=== PATIENT | female | born 1950 | race Caucasian/White ===

== ENCOUNTER 2024-01-19 08:40 | Emergency (ER) | payer MEDICARE, SELFPAY ==
[2024-01-19 08:46] VITALS: BP 210/165; PULSE 106; TEMP 36.4; O2SAT 100; BMI 28.3
[2024-01-19] MEDS: CEFAZOLIN SODIUM/DEXTROSE,ISO 1 GM/50 ML IV.SOLN IV (10:00)
[2024-01-19] MEDS: BACITRACIN OINTMENT 28.4 GM TUBE 1 APPLIC TOPICAL (11:46)
[2024-01-19] MEDS: LIDOCAINE HCL 1% 100 MG/10 ML MDV 30 ML INJ (11:46)
[2024-01-19] MEDS: LIDOCAINE HCL 1% 100 MG/10 ML MDV INJ (11:46)
[2024-01-19] MEDS: SODIUM CHLORIDE 0.9% IRRIG SOLUTION 1,000 ML BOTTLE 1000 ML IRR ×2 (11:47)
--- NOTE | 2024-01-19 11:55 | ED_ITS ---
HPI HPI - General Adult General Chief complaint: Animal Bite Stated complaint: ANIMAL BITE Time Seen by Provider: 01/19/24 08:57 Source: patient Mode of arrival: walk-in Limitations: no limitations History of Present Illness HPI narrative: Patient is a 73-year-old female who is presenting to the ER after she was bitten the face by a dog. This was patient's son's dog that she was watching. Dog report has been filled out. Patient does not know when the last tetanus shot that she had was. Dog was underneath the bed, patient was trying to get the dog from out underneath the bed, the dog,, biting her in the face. Patient has multiple lacerations around her mouth, upper lip, chin, and extensive lacerations inside her lower lip that are through and through lacerations. Patient is not diabetic. Patient was offered transfer to plastic surgery secondary to the extensive lacerations around her mouth and inside her mouth. Patient states that she normally goes to [facility]. Patient was concerned about the bleeding not stopping, so she came to [facility]. Patient does not want to be transferred to another facility that has plastic surgery, patient would like me to repair all of her lacerations. Patient has no other lacerations besides her face. All systems are negative except as noted/marked. All systems reviewed and otherwise negative. Nurses note and vital signs reviewed and patient is not hypoxic. General: The patient appears mild to moderate distress secondary to anxiety and mild pain from the extensive lacerations to her face. Patient is resting uncomfortably on cart. Patient is not toxic, lethargic, or listless. Skin: Warm, dry, no pallor noted. There is no rash noted. No petechiae, purpura. See procedure note for the descriptions of all lacerations that were seen. Head: Normocephalic, dog bite around her mouth and intraoral, please see procedure note for all the descriptions and procedure notes for the multiple lacerations that occurred. Eye: Normal conjunctiva, no drainage, EOMI. PERRL. No eye injury. Ears, Nose, Mouth, and Throat: oral mucosa is moist. Nares patent. Mouth without vesicles. Cardiovascular: Regular Rate and Rhythm, no murmur, gallop, rub Respiratory: Patient is in no distress, no accessory muscle use, lungs are clear to auscultation, no wheezing, rales or rhonchi Back: non-tender, Musculoskeletal: Patient has full range of motion of all of the extremities, no motor, sensory, or focal neurological deficits Neurological: A&O x4, normal speech Psychiatric: Cooperative Related Data Home Medications ?Medication ?Instructions ?Recorded ?Confirmed lisinopril 5 mg tablet 5 mg PO BID 01/19/24 01/19/24 metformin 500 mg tablet 500 mg PO BID 01/19/24 01/19/24 omeprazole 40 mg capsule,delayed 40 mg PO DAILY 01/19/24 01/19/24 release Previous Rx's ?Medication ?Instructions ?Recorded amoxicillin 875 mg-potassium 1 tab PO Q12H 10 days #20 tabs 01/19/24 clavulanate 125 mg tablet hydrocodone 5 mg-acetaminophen 325 1 tab PO Q4H PRN pain #12 tabs 01/19/24 mg tablet mupirocin 2 % topical ointment 1 applic topical TID 14 days #15 01/19/24 grams Allergies Allergy/AdvReac Type Severity Reaction Status Date / Time egg AdvReac Mild Verified 01/19/24 08:46 Opioid HPI Opioid Management Most Recent Opioid Data: Last Pain Scale 6 01/19/24 12:25 Last MAR Pain Assessment 01/19/24 12:03 Exam Constitutional Vital Signs, click to edit/add: Last Vital Signs Temp 97.5 F L 01/19/24 08:46 Pulse 106 H 01/19/24 08:46 Resp 18 01/19/24 08:46 BP 210/165 H 01/19/24 08:46 Pulse Ox 100 01/19/24 08:46 O2 Del Method Room Air 01/19/24 08:46 Course Vital Signs Vital signs: Vital Signs Temperature 97.5 F L 01/19/24 08:46 Pulse Rate 106 H 01/19/24 08:46 Respiratory Rate 18 01/19/24 08:46 Blood Pressure 210/165 H 01/19/24 08:46 Pulse Oximetry 100 01/19/24 08:46 Oxygen Delivery Method Room Air 01/19/24 08:46 Temperature 97.5 F L 01/19/24 08:46 Pulse Rate 106 H 01/19/24 08:46 Respiratory Rate 18 01/19/24 08:46 Blood Pressure 210/165 H 01/19/24 08:46 Pulse Oximetry 100 01/19/24 08:46 Oxygen Delivery Method Room Air 01/19/24 08:46 Discharge Plan Discharge Stand Alone Forms: Portal Instructions Chief Complaint: Animal Bite Clinical Impression: Intraoral laceration, Bite by animal, Dog bite, Laceration of intraoral surface of lip, Laceration of face, multiple sites, Laceration of face, complex Patient Disposition: Home, Self-Care Time of Disposition Decision: 11:48 Condition: Fair Prescriptions / Home Meds: New hydrocodone-acetaminophen 5-325 mg tablet 1 tab PO Q4H PRN (Reason: pain) Qty: 12 0RF mupirocin 2 % ointment 1 applic topical TID 14 Days Qty: 15 0RF amoxicillin-pot clavulanate 875-125 mg tablet 1 tab PO Q12H 10 Days Qty: 20 0RF No Action lisinopril 5 mg tablet 5 mg PO BID metformin 500 mg tablet 500 mg PO BID omeprazole 40 mg capsule,delayed release(DR/EC) 40 mg PO DAILY Print Language: Kiswahili Instructions: Animal Bite (ED), Laceration (ED), Care For Your Absorbable Stitches (ED), Laceration Without Closure (ED), Facial Laceration (ED), Bone Bruise (ED) Additional Instructions: Use prescribed antibiotic ointment 3 times a day to help prevent infection and p romote wound healing. Tonight you may take a shower, let the water fall off your face, did not have your head submerged under any body of water for the next 3 weeks. Facial sutures should be removed in 5 to 7 days. Use ice 20 minutes on, 20 minutes off. Do not use heat. The multiple sutures placed inside your mouth will dissolve in several weeks. Soft diet for the next 4 to 5 days, nothing that you have to chew or where any significant particles could get inside any wounds. You may use Motrin, Advil, or ibuprofen in addition to pain medication to help with pain. Do not take Tylenol and [place] together, you could accidentally take too much Tylenol at 1 time. Either use Tylenol or White [place], do not exceed 3000 mg of Tylenol daily Referrals: MELANIE WILKERSON [Primary Care Provider] - 1 week Discharge Date/Time: 01/19/24 12:37 Procedures ED Procedure Instructions Procedures Procedures: Multiple laceration procedure notes, see below. Aniceto RUIZ was at bedside during the entire procedure note as an zoning assistant, very helpful. The first laceration that was repaired was patient's large intraoral laceration, to her lower lip, 3 separate lower lip lacerations and 1 large laceration through the lower gingival/gum tissue. Laceration repair done by Dr. Castrejon. Aniceto RUIZ was at bedside for assistance which was helpful and to help with repair of holding lip and soft tissue at various parts of the procedure. Patient was cleaned, prepped, draped in normal sterile fashion. The patient was anesthetized with a total of 20cc of 1 percent lidocaine]. Multiple different injections were done just prior to me doing the different sections of repairs. Patient had good anesthetic effect to all areas. Patient was cleaned with Hibiclens (intraoral) and Betadine to all other wounds. patient was copiously irrigated with sterile irrigation water, approximately a total of 3000 mL. Patient never had any type of airway compromise. Patient tolerated all procedures well with no difficulty. Patient had 15 cc of Hibiclens that was used to irrigate the large intraoral laceration, then patient had 1000 mL irrigation bottle poured to her lower lip. The irrigation water came out of the 2 large lower left and right chin lacerations, both of these were a through and through laceration. 10 minutes was spent irrigating all wounds with Hibiclens, Betadine, and a total of 3000 mL of irrigation water. Patient has a 1.5 cm middle lower lip laceration. Patient had 3, 5-0 Vicryl simple interrupted sutures to approximate this laceration. Patient had a right lower inner lip 1.5 cm laceration, 2, 5-0 Vicryl simple interrupted sutures were placed. Patient had a left lower lip laceration, at the corner of her lip, not involving the vermilion border, that had 5, 5?0 Prolene simple interrupted sutures. Patient's vermilion border remained intact. Patient had a large intraoral laceration that patient's lower gingiva with her lower lip gum tissue. There was 2 sutures placed to the middle of this 3.5 cm horizontal laceration, 5-0 Vicryl, simple interrupted. To the left side Of the middle of this 3.5 cm laceration, patient had 2 simple interrupted 5-0 Vicryl sutures placed. To the right side of the midline of the 2 simple interrupted sutures were placed, patient had a running baseball stitch of 5-0 Vicryl, 5 loops/sutures were done. This did approximate the large 3.5 cm laceration well. The 3 separate lower lip lacerations were repaired before the large intraoral 3.5 cm laceration was repaired. Patient had a stellate laceration to the left lower middle chin, 1.5 cm x 0.75 cm x 1cm Lea shaped slightly V-shaped, stellate. This was approximately 1 cm deep. Patient had 3, 5-0 Vicryl subcutaneous sutures to approximate the laceration. Patient then had 7, 5-0 Prolene simple interrupted sutures that approximated loosely the laceration well. Patient had a right lower chin stellate, deep, somewhat H shaped laceration. This was approximately 2 cm long, approximately 4 mm deep. Patient had 3, 5?0 Vicryl subcutaneous sutures placed to approximate the wound. Patient then had 5, 5-0 Prolene simple interrupted sutures to approximate loosely the laceration well. Patient had a right mid upper lip reverse V shaped laceration that was 0.75 cm x 0.5 cm. There was 1, 5?0 simple interrupted Prolene suture placed to approximate the wound well. Patient had a small right lateral chin superficial laceration, patient had a right upper lateral L-shaped superficial laceration/abrasion that was approximate 1 cm. Patient also had a 1 cm, left nasolabial fold superficial laceration/abrasion. Time for procedure, 1.25 hours. Patient had IV established, patient was given 1 g of Ancef. Patient had bacitracin and dry dressing placed to wounds. Patient had tetanus update. Patient was given 1 Percocet prior to discharge. Patient grandson was at bedside during the end of patient's procedure, daughter was here when patient arrived, and also to help pick the patient up. Patient was very thankful for laceration repair. Patient understands that all wounds were closed and approximated loosely secondary to dog bites. Some wounds were not closed secondary to dog bites. Patient was sent home with prescription for Augmentin, White Post, and also was given a prescription for Bactroban to help decreased infection. Patient was educated on using ice, patient will follow-up with PCP. Sutures will be removed in 5 to 6 days, education on external sutures and intraoral absorbable sutures were done at bedside and on discharge paperwork. No questions at discharge. Critical care time 35 minutes exclusive from separate billable procedures that were performed. The following was considered in the determination of critical care but not limited to the level of medical decision making, intensive cardiac and/or respiratory monitoring, frequent vital sign monitoring, evaluation of laboratory studies, evaluation of radiographic studies, oxygen monitoring, and constant monitoring and speaking to family at bedside Clinical diagnosis: 2 large complex laceration repairs of the chin; 1 large complex intraoral laceration repair; multiple lower lip lacerations; multiple upper lip abrasions and laceration
[2024-01-19] MEDS: OXYCODONE HCL/ACETAMINOPHEN 5MG/325MG 1 TAB PO (12:03)
[2024-01-19] MEDS: ADACEL DIPH,PERTUSS(ACELL),TET VAC/PF 0.5 ML ADULT SYRINGE IM (12:23)
== END 2024-01-19 12:37 | disposition home or self-care (01) ==
PROVIDERS: Emergency Provider Emergency Medicine; PCP Nurse Practitioner Family
DX: S01.511A Laceration without foreign body of lip, initial encounter (principal); S01.81XA Laceration without foreign body of other part of head, initial encounter; Z23 Encounter for immunization; W54.0XXA Bitten by dog, initial encounter; Z79.899 Other long term (current) drug therapy; Z79.84 Long term (current) use of oral hypoglycemic drugs
CPT/HCPCS: 90471; 90715; 96365; 99284